=== PATIENT | female | born 1985 | race Caucasian/White ===

== ENCOUNTER 2017-08-04 07:15 | Emergency (ER) | payer OTHER ==
[2017-08-04 07:27] VITALS: RESP 18; TEMP 97.5
[2017-08-04] MEDS ORDERED: SODIUM CHLORIDE 0.9% 1,000 ML IV STA (07:56)
[2017-08-04] MEDS ORDERED: ALBUTEROL NEBULIZED 2.5 MG/3 ML INHALATION STA (07:58)
[2017-08-04 08:08] VITALS: BP 117/72; PULSE 90
--- NOTE | 2017-08-04 08:14 | ED ---
Dizziness HPI - General Chief Complaint: Dizziness Stated Complaint: 26 wks preg, dizziness Time Seen by Provider: 08/04/17 07:36 Source: patient, RN notes reviewed, old records reviewed Mode of arrival: ambulatory Limitations: no limitations - History of Present Illness Initial Comments: This patient is a 32-year-old female presents emergency [facility] Patient reports that she entered rehab approximately 2 days ago. She reports that today she was outside smoking a cigarette and of the sudden felt dizzy and fifth walked backward into the snow today. She reports that her balance feels like it is off. Patient reports that she is currently 26 weeks . She has no care up until this time. Patient states that she is female. She denies any changes in urination or bowel habits. Patient reports that she feels dizzy and complains of some shortness of breath. Denies any coughing, wheezing. Patient reports that she feels like she is going through withdrawals. Patient reports that she is in rehab for heroin, opiate drug abuse, Xanax. She reports that she last used during her admission and take to [place]. - Related Data Home Medications Medication Instructions Recorded Confirmed No Known Home Medications [No 08/04/17 08/04/17 Known Home Medications] Allergies Allergy/AdvReac Type Severity Reaction Status Date / Time No Known Allergies Allergy Verified 08/04/17 08:18 Review of Systems ROS Statement: Those systems with pertinent positive or pertinent negative responses have been documented in the HPI. ROS Other: All systems not noted in ROS Statement are negative. Past Medical History Past Medical History: No Reported History History of Any Multi-Drug Resistant Organisms: None Reported Past Surgical History: No Surgical Hx Reported Past Psychological History: Depression Smoking Status: Current every day smoker Past Alcohol Use History: None Reported Past Drug Use History: Heroin, Methamphetamine, Opiates General Exam - General Exam Comments Initial Comments: This is a 32-year-old female. Patient is alert and oriented. She does not appear to be in any acute distress. Limitations: no limitations General appearance: alert, in no apparent distress Head exam: Present: atraumatic, normocephalic, normal inspection Eye exam: Present: normal appearance, PERRL, EOMI. Absent: scleral icterus, conjunctival injection, periorbital swelling ENT exam: Present: normal exam, normal oropharynx, mucous membranes moist Neck exam: Present: normal inspection. Absent: tenderness, meningismus, lymphadenopathy Respiratory exam: Present: normal lung sounds bilaterally. Absent: respiratory distress, wheezes, rales, rhonchi, stridor Cardiovascular Exam: Present: regular rate, normal rhythm, normal heart sounds. Absent: systolic murmur, diastolic murmur, rubs, gallop, clicks GI/Abdominal exam: Present: soft, normal bowel sounds, other (Gautam brain and abdomen consistent with 26 weeks of .). Absent: distended, tenderness , guarding, rebound, rigid Extremities exam: Present: normal inspection Back exam: Present: normal inspection, full ROM. Absent: tenderness, CVA tenderness (R), CVA tenderness (L), muscle spasm, paraspinal tenderness, vertebral tenderness Neurological exam: Present: alert, oriented X3, CN II-XII intact, normal gait. Absent: altered Psychiatric exam: Present: normal affect, normal mood. Absent: depressed, agitated Skin exam: Present: warm, dry, intact, normal color. Absent: rash Course Vital Signs 08/04/17 08/04/17 07:23 08:02 Temperature 97.5 F L Pulse Rate 93 90 Respiratory 18 18 Rate Blood Pressure 112/70 117/72 O2 Sat by Pulse 93 L 98 Oximetry - Reevaluation(s) Reevaluation #1: 08/04/17 08:14 Patient's heart tones were obtained and were between 145 and 135. Medical Decision Making - Medical Decision Making This patient is a 32-year-old female presents emergency Department chief complaint dizziness. She is currently 26 weeks . She reports that she was smoking a cigarette today and fell backward into the snow due to loss of balance. Patient seems to be mildly confused. She is answering all questions appropriately. Able to ambulate without any difficulty. No evidence of balance issues at this time. Patient was given heart tones which was 1: 30. I discussed her wanted to further evaluate her dizziness and started an IV and check blood work. On an attempted IV patient pulled her hand back and stated it hurt too bad and she refused. I tried to discuss with the patient that she needs has blood work taken as well as some initial care labs. Patient continued to refuse and is adamant about leaving. 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 I attempted multiple times in the patient to calm down and let us check her for other origins for dizziness and patient continues states that she was fine and just wanted to go. Patient left the premises after being signed out AMA. Patient went to smoke a cigarette. Patient will be picked up by [facility]. Disposition Clinical Impression: Dizziness, , No care in current Disposition: Left Against Medical Advice Condition: Stable Referrals: None,Stated [Primary Care Provider] - 1-2 days Time of Disposition: 08:28
== END 2017-08-04 08:30 | disposition left against medical advice (07) ==
LOC: EC 07:15
DX: O99.89 Other specified diseases and conditions complicating pregnancy, childbirth and the puerperium (principal); R42 Dizziness and giddiness; R06.02 Shortness of breath; O99.322 Drug use complicating pregnancy, second trimester; F11.10 Opioid abuse, uncomplicated; O99.332 Smoking (tobacco) complicating pregnancy, second trimester; F17.210 Nicotine dependence, cigarettes, uncomplicated; Z3A.26 26 weeks gestation of pregnancy; W17.89XA Other fall from one level to another, initial encounter; Y93.01 Activity, walking, marching and hiking; Y92.89 Other specified places as the place of occurrence of the external cause
CPT/HCPCS: 99284